=== PATIENT | male | born 1965 | race Caucasian/White ===

== ENCOUNTER 2016-11-01 10:38 | Emergency (ER) | payer OTHER ==
[2016-11-01 11:29] VITALS: BP 115/81; PULSE 65; RESP 16; TEMP 97.9; O2SAT 96
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
== END 2016-11-01 12:48 | disposition home or self-care (01) ==
DX: S20.212A Contusion of left front wall of thorax, initial encounter (principal); V18.4XXA Pedal cycle driver injured in noncollision transport accident in traffic accident, initial encounter; Y92.410 Unspecified street and highway as the place of occurrence of the external cause; Y99.8 Other external cause status; Y93.55 Activity, bike riding